=== PATIENT | male | born 1975 | race Two or more races ===

== ENCOUNTER → 2025-03-07 | Day surgery (SDC) | payer MEDICAID ==
[2025-03-01 11:10] LABS: Urine Bacteria None Seen /hpf (None Seen)
[2025-03-01 11:22] LABS: Basophils # (auto) 0.1 10 ^3/uL (0-0.2); Basophils % (auto) 0.9 % (0.0-2.0); Eosinophils # (auto) 0.2 10 ^3/uL (0-0.8); Eosinophils % (auto) 2.3 % (0.0-7.0); Hematocrit 51.8 % (41.0-53.0); Lymphocytes # (auto) 2.4 10 ^3/uL (0.4-5.4); Lymphocytes % (auto) 22.1 % (10.0-50.0); Mean Corpuscular Hemoglobin 31.1 pg (28.0-32.0); Mean Corpuscular Hgb Conc. 34.8 g/dL (32.0-36.0); Mean Corpuscular Volume 89.2 fL (80.0-100.0); Monocytes # (auto) 0.8 10 ^3/uL (0-1.3); Monocytes % (auto) 7.4 % (0.0-12.0); Neutrophils # (auto) 7.4 10 ^3/uL (1.6-8.6); Neutrophils % (auto) 67.3 % (37.0-80.0); Nucleated Red Blood Cells % 0.3 %; Platelet Count (auto) 268 10^3/uL (140-450); Red Cell Distribution Width 12.8 % (11.8-14.3)
[2025-03-01 11:31] LABS: Urine Blood Negative /uL (Negative); Urine Clarity Clear (Clear); Urine Color Light-Yellow (Yellow); Urine Protein, UAD Negative (Negative); Urine Specific Gravity 1.012 (1.001-1.035); Urine Squamous Epithelial Cell None Seen /hpf (<5); Urine Urobilinogen Normal (Negative); Urine WBC < 1 /HPF (0-3)
[2025-03-01 11:35] LABS: INR 1.07 (0.9-1.15); Partial Thromboplastin Time 30.8 SEC (24.5-34.5); Prothrombin Time 11.3 sec (9.3-11.8)
[2025-03-01 11:39] LABS: Alanine Aminotransferase 39 U/L (7-40); Alkaline Phosphatase 80 U/L (46-116); Anion Gap 8 (5-15); Aspartate Aminotransferase 28 U/L (13-40); Carbon Dioxide 28 mmol/L (20-31); Chloride 103 mmol/L (98-107); Glucose 89 mg/dL (74-106); Potassium 4.3 mmol/L (3.5-5.1); Sodium 139 mmol/L (136-145)
[2025-03-01 11:40] LABS: Blood Urea Nitrogen 11 mg/dL (9-23)
[2025-03-01 11:41] LABS: Albumin 5.4 g/dL (3.2-4.8); Calcium 10.7 mg/dL (8.7-10.4); Total Protein 8.8 g/dL (5.7-8.2)
[2025-03-01 11:42] LABS: Bilirubin, Total 1.1 mg/dL (0.2-1.0)
[~2025-03-07] VITALS: Ht 180.3 cm; Wt 136.1 kg
[~2025-03-07] MED LIST: ALPR1TAB2 PO; ATOR10TA52 PO; DexAMETHasone SOD PHOS 10MG/1ML VIAL INJ ONE; FLUMAZENIL 0.1 MG/ML INJ 10ML MDV IV PRN; GLYCOPYRROLATE 0.2 MG/ML 1ML VIAL ONE; HYDROmorphone HCL 2 MG/ML VL/or syr IV PRN; KETAMINE 50mg/ML 1ml syringe ONE; KETOROLAC TROMETH 30 MG/ML 1ML VIAL ONE; LISI20TA56 PO; NALOXONE HCL 0.4 MG/ML VIAL IV PRN; ONDANSETRON HCL 4 MG/2 ML VIAL IV PRN; ONDANSETRON HCL 4 MG/2 ML VIAL ONE; PROPOFOL 10 MG/ML 20 ML IV ONE; SEMA2INJ3 SC; ceFAZolin 1GM VL ONE; ceFAZolin 1GM/50ML 100 ML IV ONE; ePHEDrine SULFATE 50 MG/ML AMP IV PRN; fentaNYL CITRATE 100 MCG/2 ML VL IV PRN; hydrALAZINE HCL 20 MG/ML VL IV PRN
--- NOTE | 2025-03-07 13:08 | DVHOP2 ---
Operative Report - 2 Report Details Date: 03/07/25 Preop Diagnosis: 1. Left foot ganglion cyst 2. Left foot pain Postop Diagnosis: Left foot cyst Surgeon: Bowen Talley MD Anesthesiologist: See anesthesia Anesthesia: Mac Consent: The patient was informed of the risks and benefits of the procedure. These include but are not limited to complications of anesthesia, postoperative infection, incomplete relief of symptoms, recurrence of symptoms, damage to blood vessels, nerves and tendons, deep venous thrombosis, pulmonary embolism and possible need for repeat surgery in the future. Complications: None Estimated Blood Loss: Minimal Fluids: See anesthesia Findings: Consistent with the diagnosis Indications for Surgery: Worsening left foot pain Name of Procedure Performed 1. Left foot ganglion cyst excision Procedure Details Procedure Details: PRE-PROCEDURE INFORMATION: In the pre-op holding area, the extremity to be operated on was clearly marked and the patient verified correct laterality of the marking. The patient was transferred to the OR table and placed in a supine position. A timeout was performed in which identification of the correct patient, procedure, location, and materials was done. The _ foot and leg were prepped and draped in normal sterile fashion. The foot and leg were exsangu inated and the _ tourniquet was inflated to 250 mmHg. DESCRIPTION OF PROCEDURE: Attention was directed to the left foot dorsal foot where a small incision was made to gain access to the cyst that was beneath the subcutaneous layers. Using sharp and blunt dissection, the cyst was able to be delineated and the cyst was adequately removed. This cyst appeared to be consistent with a ganglion cyst. After adequate visualization revealed that the cyst had been removed in its entirety, the wound was irrigated copiously with normal saline. All surgical wounds were irrigated copiously with saline and closed in layers with the aforementioned suture material. A dry sterile dressing was placed on the surgical extremity. The patient was placed in a post op shoe POSTOPERATIVE INFORMATION: The patient tolerated the above noted procedure and anesthesia well and was transferred to the PACU with vital signs stable, and vascular status intact with capillary refill intact to all digits. Postoperative instructions reviewed in detail with the patient with written instructions provided. Patient will return to clinic in approximately 10-14 days for first postoperative visit. Patient has the number of the clinic and was instructed to call prior to that time should any problems, questions, or concerns arise. Condition Good Disposition Home BOWEN TALLEY DPM Mar 07, 2025 13:08
[2025-03-07 13:09] VITALS: PULSE 78; RESP 13; TEMP 97.8; O2SAT 96
[2025-03-07] MEDS: LIDOCAINE 1% INJ PF 5ML AMP ONE (13:17)
[2025-03-07 13:59] VITALS: BP 134/74; PULSE 62; RESP 16; O2SAT 94
== END | disposition home or self-care (01) ==
LOC: SUR 11:58 → EDBD 12:45
PROVIDERS: ATTEND Podiatrist
DX: M67.472 Ganglion, left ankle and foot (principal); I10 Essential (primary) hypertension; E78.00 Pure hypercholesterolemia, unspecified; K44.9 Diaphragmatic hernia without obstruction or gangrene; K21.9 Gastro-esophageal reflux disease without esophagitis; F43.10 Post-traumatic stress disorder, unspecified; E66.01 Morbid (severe) obesity due to excess calories; Z68.41 Body mass index [BMI] 40.0-44.9, adult; Z79.899 Other long term (current) drug therapy; Z98.890 Other specified postprocedural states
CPT/HCPCS: 28090; 36415; 80053; 81001; 85025; 85610; 85730; J0690; J1100; J1885; J2405; J2704